=== PATIENT | female | born 1965 | race African-American/Black ===

== ENCOUNTER 2020-01-16 14:00 | Emergency (ER) | payer BC, OTHER ==
[~2020-01-16] VITALS: Ht 167.6 cm; Wt 118.2 kg
[~2020-01-16 14:00] MED LIST: NOCURR
[2020-01-16] MEDS ORDERED: AMOX1TAB16 PO (14:06)
[2020-01-16] MEDS ORDERED: FURO40 PO (14:06)
[2020-01-16] MEDS ORDERED: inhaler IH (14:06)
[2020-01-16 16:50] VITALS: BP 150/97
== END 2020-01-16 18:00 | disposition home or self-care (01) ==
LOC: EMS 14:00
DX: S81.801A Unspecified open wound, right lower leg, initial encounter (principal); E66.01 Morbid (severe) obesity due to excess calories; G47.30 Sleep apnea, unspecified; Z79.899 Other long term (current) drug therapy; Z90.49 Acquired absence of other specified parts of digestive tract; Z68.41 Body mass index [BMI] 40.0-44.9, adult; X58.XXXA Exposure to other specified factors, initial encounter; Y93.89 Activity, other specified; Y92.89 Other specified places as the place of occurrence of the external cause; Y99.8 Other external cause status